=== PATIENT | female | born 1995 | race African-American/Black ===

== ENCOUNTER 2019-12-23 03:47 | Inpatient (IN) ==
[2019-12-23] MEDS ORDERED: ceFAZolin SODIUM 2 GM in DEXTROSE 5 % IN WATER 50 ML IV PRN ×2 (04:07)
[2019-12-23 05:03] LABS: Cocaine Ur Negative (NEGATIVE); Urine Barbiturate Negative (NEGATIVE); Urine Benzodiazepines Negative (NEGATIVE); Urine Opiates Negative (NEGATIVE); Urine PCP Negative (NEGATIVE); Urine THC Negative (NEGATIVE)
[2019-12-23] MEDS ORDERED: ceFAZolin SODIUM 1 GM VIAL IV PRN ×2 (06:00)
[2019-12-23] MEDS ORDERED: OXYTOCIN 20 UNITS in RINGER'S SOLUTION,LACTATED 1,000 ML IV ONE ×4 (06:00)
[2019-12-23] MEDS ORDERED: RINGER'S SOLUTION,LACTATED 1,000 ML IV PRN ×2 (06:00)
[2019-12-23] MEDS ORDERED: BUPIVACAINE HCL/EPINEPHRINE 50 ML VIAL ONE (06:26)
--- NOTE | 2019-12-23 06:37 | ANES ---
Anesthesia Pre Procedure Eval HOME MEDICATIONS Vits96/Iron Fum/Folic [ S] 1 tab PO DAILY 07/23/16 [Last Taken 07/22/16] ferrous sulfate 325 mg (65 mg iron) tablet,delayed release 325 mg PO DAILY #30 tab 09/27/19 [Last Taken Unknown] hydroxyzine pamoate 25 mg capsule 25 mg PO Q4H PRN #30 cap 10/31/19 [Last Taken Unknown] Allergies/Adverse Reactions: Allergies Allergy/AdvReac Type Severity Reaction Status Date / Time Penicillins Allergy Black Verified 12/23/19 03:56 Tongue - Planned Procedure Planned Procedure: repeat Section w/poss abd scar revision Medication List Reviewed:: Yes Allergies Verified: Yes Medical History (Last Reviewed 12/23/19 @ 06:36 by Ronal Noe CRNA) Bacterial vaginitis (Acute) Anemia (Resolved) Onset Date: 04/19/16 w/pregnancies 2015,2019 Heart murmur Onset Date: ~2012 Tattoos Onset Date: Unknown Appendicitis Onset Date: 12/19/10 Dr. Benoit PUPP Syndrome Onset Date: ~2015 Surgical History (Last Reviewed 12/23/19 @ 06:36 by Ronal Noe CRNA) Previous section (Chronic) History of appendectomy Onset Date: 12/19/10 Dr. Benoit. Lx appendectomy. Previous section Onset Date: 07/23/16 Face/mental posterior presentation [place] teeth extracted Onset Date: Unknown Family History (Last Reviewed 12/23/19 @ 06:36 by Ronal Noe CRNA) Mother Previous back surgery Father Seizures Brother Seizures Asthma Grandfather Hypertension Grandmother Diabetes Hypertension Grandfather MVA (motor vehicle accident) Uncle Down syndrome - Family Anesthesia History Family History:: no untoward family reactions to anesthesia, no familial bleeding tendencies, no family history of clotting disorders, no family history of premature - Airway/Neck/Teeth Within Normal Limits:: Yes Teeth Condition: intact Neck Exam: full range of motion Mallampatti Score: 1 Thyromental (T-M) distance: > 6 cm Mandibulo Hyoid distance: > 3 cm - Respiratory Respiratory Physical: lungs clear Sleep Apnea currently treated: No Sleep Apnea by current assessment: No - Cardiovascular Tolerate Activity: Fair Heart Sounds: S1 & S2, Regular - Gastrointestinal NPO since: 2400 - Anesthesia Assessment and Plan ASA Class: PS, II Anesthesia Type Plan: Block - Bilateral TAP block for post op pain relief, possible., Spinal
[2019-12-23] MEDS ORDERED: ceFAZolin SODIUM 1 GM VIAL ONE (07:08)
[2019-12-23] MEDS ORDERED: ONDANSETRON HCL/PF 2 MG/ML VIAL IV PRN (08:15)
[2019-12-23] MEDS ORDERED: BISACODYL 10 MG SUPP.RECT RC PRN (08:15)
[2019-12-23] MEDS ORDERED: SENNOSIDES 8.6 MG TABLET PO PRN (08:15)
--- NOTE | 2019-12-23 08:16 | ANES ---
Post Anesthesia Assessment - Vital Signs Airway Patency: Normal - Mental Status Level Of Consciousness: Awake, Alert, Appropriate - Pain Level Pain Score: 0 - N/V Assessment Nausea/Vomiting Presence: None Dehydration:: No
--- NOTE | 2019-12-23 08:19 | OR ---
Operative Report - Dictated Report Narrative: Indication: 24-year-old 2 para 1 at 39-1/7 weeks with prior section presents for repeat section in early labor. status: Planned Pre Operative Diagnosis: 39-1/7-week intrauterine . Prior section x1. Labor. Post Operative Diagnosis: Same. Procedure: Repeat low transverse section. Surgeon: Sameer Santiago DO Quality Compliance Coordinator: OR Staff Anesthesia: Spinal, TAP block Estimated Blood Loss: 250 mL Urine Output: 400 mL clear urine Fluids Replacement: 1350 mL Drains: Abernathy to gravity Surgical Complications: None Specimens: Placenta to freezer Findings: Female born at 0722 on 12/23/2021 with Apgars 9 and 9, weighing 2695 g in cephalic presentation. Normal uterus, tubes, ovaries Technique: The patient was taken to the operating room and placed in dorsal supine position with a left lateral tilt. After adequate spinal anesthesia, abernathy catheter inserted, SCDs placed, and 2 g of Ancef given preoperatively, the abdominal cavity was entered using sharp and blunt dissection. Two rolled laps were placed in the pericolic gutters on either side of the uterus. A transverse incision was made in the lower uterine segment and extended laterally and upwardly with digital traction. Clear fluid was noted upon amniotomy. The was delivered easily. After approximately 30 seconds, the cord was clamped and cut and was handed off to awaiting pharmacy tech. The placenta was allowed to deliver spontaneously. The uterus was cleared of clot and debris. Uterine incision was closed with 0 Vicryl using a running stitch. A second imbricating layer was placed. Small bleeding in the left corner of the hysterotomy was controlled with a single [id number] 0 Vicryl suture. Excellent hemostasis was noted. The rolled laps were removed from the abdominal cavitiy. The peritoneum was closed with a running 3-0 Monocryl. The same suture was used to approximate the rectus and pyramidalis muscles. The fascia was closed with a running 0 Vicryl. The subcutaneous layer was closed with a running 3-0 Monocryl. The same suture was used to approximate the subdermal layer. The skin was closed with a running 4-0 Monocryl and Dermabond. Sponge, lap, needle, and instrument count were correct x 2. Disposition: To post anesthesia care unit in good condition History for MU History for MU Definition: * The number of deliveries resulting in a live the patient experienced prior to current hospitalization * The previous delivery of live twins or any live multiple gestation is considered one live event. *If primagravida or nulliparous is documented select zero for the number of previous live births. Live Events: Live Events: 1
--- NOTE | 2019-12-23 08:47 | ANES ---
Anesthesia Procedure Note Procedure Note: ANESTHESIA PROCEDURE NOTE Date of Procedure: [12/23/2019 Time of procedure: 8:20 AM. Performed by: CHATO Villaseñor CRNA, MSN Business Systems Technician: Martha Wiley RN. Preprocedure diagnosis: Post section pain. Post procedure diagnosis: Same. Procedure: Bilateral TAP block Indications: Post section pain relief. Findings: See below. Details of the procedure: The patient was brought to PACU and placed in the supine position. The patient was prepped with chlorhexidine and using ultrasound guidance the 3 abdominal muscular planes were identified and lidocaine 1% was infiltrated to the skin of the intended injection site. Under ultrasound guidance the the internal oblique and transverse this abdominis muscle layers were approached with visualization of a 4 inch block needle until the tip of the needle rested in the plane between the muscles. 25 mL bupivacaine 0.5% with 1-200,000 epinephrine was injected and the procedure was repeated on the other side. Please see radiology/ultrasound report for details and images of the procedure. EBL: 0 Fluids: N/A. Specimen: N/A. Post procedure condition: The patient tolerated the procedure well. No complications were noted. Thank you for this consultation. Ronal Noe CRNA, ARNP, MSN
--- NOTE | 2019-12-23 09:41 | ANES ---
Post Anesthesia Assessment - Vital Signs Vitals: Last Vital Signs Temp 36.7 C 12/23/19 09:13 Pulse 70 12/23/19 09:13 Resp 18 12/23/19 09:13 BP 121/72 12/23/19 09:13 Pulse Ox 100 12/23/19 09:13 Airway Patency: Normal - Mental Status Level Of Consciousness: Awake, Alert, Appropriate - Pain Level Pain Score: 0 - N/V Assessment Nausea/Vomiting Presence: None Dehydration:: No - Additional Notes Comments:: Still a bit sleepy but more relaxed.
[2019-12-23] MEDS: oxyCODONE HCL/ACETAMINOPHEN 1 TAB TABLET PO PRN ×2 (11:12→16:05)
[2019-12-23] MEDS: IBUPROFEN 800 MG TABLET PO PRN ×2 (11:13→20:26)
[2019-12-23] MEDS: FERROUS SULFATE 325 MG TABLET PO SCH (11:33)
[2019-12-23] MEDS: DOCUSATE SODIUM 100 MG CAPSULE PO SCH ×2 (11:33→20:26)
[2019-12-23] MEDS: PRENATAL VITS96/IRON FUM/FOLIC 1 TAB TABLET PO SCH (11:33)
[2019-12-23] MEDS: ENOXAPARIN SODIUM 40 MG/0.4 ML SYRG SC SCH (16:07)
[2019-12-24] MEDS: oxyCODONE HCL/ACETAMINOPHEN 1 TAB TABLET PO PRN ×3 (01:46→20:35)
[2019-12-24] MEDS: SIMETHICONE 80 MG TAB.CHEW PO PRN ×2 (01:58→20:37)
[2019-12-24] MEDS: IBUPROFEN 800 MG TABLET PO PRN ×3 (05:34→20:35)
--- NOTE | 2019-12-24 08:27 | OR ---
Operative Report - Dictated Report Narrative: Patient denies complaints. Tolerating regular diet. Ambulating without di fficulty. Pain well controlled. Lochia wnl. Abdomen - soft, appropriately tender Incision -clean, dry, intact uterus - firm, at umbilicus -1 no calf tenderness Impression: Post op day #1 s/p repeat section. Plan: Continue routine post-operative/ care
[2019-12-24] MEDS: FERROUS SULFATE 325 MG TABLET PO SCH (12:08)
[2019-12-24] MEDS: PRENATAL VITS96/IRON FUM/FOLIC 1 TAB TABLET PO SCH (12:08)
[2019-12-24] MEDS: DOCUSATE SODIUM 100 MG CAPSULE PO SCH ×2 (12:08→20:35)
[2019-12-24] MEDS: ENOXAPARIN SODIUM 40 MG/0.4 ML SYRG SC SCH (16:43)
[2019-12-25] MEDS: oxyCODONE HCL/ACETAMINOPHEN 1 TAB TABLET PO PRN ×3 (02:09→19:14)
--- NOTE | 2019-12-25 08:40 | PN ---
Subjective - Date and Time Seen Date: 12/25/19 Time: 08:39 Subjective Narrative: Patient without complaints Objective Objective Narrative: See vital signs - Vitals Vitals: Last Vital Signs Temp 36.6 C 12/25/19 01:00 Pulse 46 L 12/25/19 01:00 Resp 14 12/25/19 01:00 BP 103/54 12/25/19 01:00 Pulse Ox 98 12/25/19 01:00 - Exam Constitutional: Present: Alert, Oriented x3, Cooperative, No distress Abdomen: Present: soft, nontender, nondistended - incision c/d/i Extremity: Present: non-tender, no calf tenderness Skin Exam: Present: normal color, warm/dry, no cyanosis Appearance: Present: appropriate appearance Eye contact: Present: cooperative Thoughts: Present: normal thought pattern Cauti Physician Documentation - Urinary Catheter Management Urethral (Seals) Urethral Indwelling: No Date of Insertion: 12/23/19 Time of Insertion: 07:16 Assessment/Plan Plan Narrative: POD 2 s/p repeat delivery Doing well Discharge tomorrow
[2019-12-25] MEDS: IBUPROFEN 800 MG TABLET PO PRN ×2 (09:51→19:14)
[2019-12-25] MEDS: DOCUSATE SODIUM 100 MG CAPSULE PO SCH ×2 (11:40→21:05)
[2019-12-25] MEDS: FERROUS SULFATE 325 MG TABLET PO SCH (11:40)
[2019-12-25] MEDS: PRENATAL VITS96/IRON FUM/FOLIC 1 TAB TABLET PO SCH (11:41)
[2019-12-25] MEDS: ENOXAPARIN SODIUM 40 MG/0.4 ML SYRG SC SCH (16:48)
[2019-12-25] MEDS: SIMETHICONE 80 MG TAB.CHEW PO PRN (21:09)
[2019-12-26] MEDS: oxyCODONE HCL/ACETAMINOPHEN 1 TAB TABLET PO PRN ×2 (05:43→13:18)
[2019-12-26] MEDS: IBUPROFEN 800 MG TABLET PO PRN ×2 (05:46→13:18)
[2019-12-26] MEDS: DOCUSATE SODIUM 100 MG CAPSULE PO SCH (09:12)
[2019-12-26] MEDS: FERROUS SULFATE 325 MG TABLET PO SCH (09:12)
[2019-12-26] MEDS: PRENATAL VITS96/IRON FUM/FOLIC 1 TAB TABLET PO SCH (09:12)
[2019-12-26 12:04] VITALS: BP 110/64
--- NOTE | 2019-12-26 12:15 | PN ---
Subjective - Date and Time Seen Date: 12/26/19 Time: 12:13 Subjective Narrative: Patient without complaints Objective Objective Narrative: See vital signs - Review of Systems Generalized/Overall Review: Reports: No Symptoms Reported Misc: All systems neg except as marked - Vitals Vitals: Last Vital Signs Temp 36.0 C 12/26/19 11:51 Pulse 64 12/26/19 11:51 Resp 14 12/26/19 11:51 BP 110/64 12/26/19 11:51 Pulse Ox 99 12/26/19 11:51 - Exam Constitutional: Present: Alert, Oriented x3, Cooperative, No distress ENT Exam: Present: hearing grossly normal Abdomen: Present: soft, nontender, nondistended - incision c/d/i Extremity: Present: non-tender, no calf tenderness Skin Exam: Present: normal color, warm/dry, no cyanosis Appearance: Present: appropriate appearance Eye contact: Present: cooperative Thoughts: Present: normal thought pattern Cauti Physician Documentation - Urinary Catheter Management Urethral (Seals) Urethral Indwelling: No Date of Insertion: 12/23/19 Time of Insertion: 07:16 Assessment/Plan Plan Narrative: POD 3 s/p delivery Doing well Discharge today Depo Provera for contraception prior to discharge Follow-up as instructed by Dr. Santiago
[2019-12-26] MEDS ORDERED: MEDROXYPROGESTERONE ACET 150 MG/ML SYRG IM ONE (12:30)
== END 2019-12-26 14:20 | disposition home or self-care (01) | DRG 788 ==
LOC: OB 03:47
PROVIDERS: ADMIT Obstetrics & Gynecology; ATTEND Obstetrics & Gynecology
CPT/HCPCS: 59025; 80307